=== PATIENT | male | born 1980 | race Caucasian/White ===

== ENCOUNTER 2016-08-02 14:59 | Emergency (ER) | payer OTHER ==
[~2016-08-02] VITALS: Ht 180.3 cm; Wt 100.0 kg
[~2016-08-02 14:59] MED LIST: CYCL-36 PO; HYDR-3533 PO; PRED20 PO
[2016-08-02 15:00] VITALS: BP 166/80; PULSE 62; TEMP 97.6; O2SAT 99
--- NOTE | 2016-08-02 15:20 | PD ---
HPI Chief Complaint: Wound/Suture/Staple Re-Check Time Seen by Provider: 15:18 Travel History International Travel<30 days: No Contact w/Intl Traveler<30days: No Traveled to known affect area: No History of Present Illness HPI 35-year-old male presents to emergency Department with complaint of a broken suture in the middle of his laceration from a mole removal 2 days ago. Says the size of the laceration are closed but the middle is open. [facility] Denies fever, vomiting. Has applied a Band-Aid to the area. Has no medical complaints. Allergies to morphine. No other modifying factors or associated signs and symptoms. PFSH Social History Alcohol Use: No Tobacco Use: No Allergies-Medications (Allergen,Severity, Reaction): Coded Allergies: Morphine (Verified Allergy, Severe, TWITCHING, 05/20/14) Reported Meds & Prescriptions Reported Meds & Active Scripts Active Flexeril (Cyclobenzaprine HCl) 10 Mg Tab 10 Mg PO TID Lortab 5 mg/325 mg (Hydrocodone/Acetaminophen 5 mg/325 mg) 1 Tab 1 Tab PO Q8 PRN Deltasone (Prednisone) 20 Mg Tab 20 Mg PO TID Review of Systems Except as stated in HPI: all other systems reviewed are Neg Physical Exam Narrative GENERAL: Well-nourished, well-developed male patient, in no acute distress SKIN: Warm and dry. Right upper back with approximately 1 cm laceration with 2 sutures intact and wound is not well approximated; without erythema, edema, drainage. No signs of infection. HEAD: Atraumatic. Normocephalic. EYES: Pupils equal and round. No scleral icterus. No injection or drainage. ENT: Mucosa pink and moist. Airway patent. NECK: Trachea midline. CARDIOVASCULAR: Regular rate. RESPIRATORY: No accessory muscle use. GASTROINTESTINAL: Flat. MUSCULOSKELETAL: No obvious deformities. No clubbing. No cyanosis. No edema. NEUROLOGICAL: Awake and alert. Oriented 3. No obvious cranial nerve deficits. Motor grossly within normal limits. Normal speech. PSYCHIATRIC: Appropriate mood and affect; insight and judgment normal. Data Data Last Documented VS Vital Signs Date Time Temp Pulse Resp B/P Pulse Ox O2 Delivery O2 Flow Rate FiO2 08/02/16 15:00 97.6 62 166/80 99 MDM Medical Decision Making Medical Screen Exam Complete: Yes Emergency Medical Condition: Yes Medical Record Reviewed: Yes Differential Diagnosis Wound recheck, broken suture, laceration Narrative Course 35-year-old male with a broken suture laceration from a mole removal 2 days ago. The laceration is approximately 1 cm and a small area is open in the middle. Steri-Strips applied. Instructed patient to follow-up with primary care provider and refrigerator assembler. Patient verbalizes understanding and agreement with treatment plan. Patient is medically cleared and stable for discharge. Discussed reasons to return to the emergency department. Instructed patient to follow up with primary care provider. Patient agrees with treatment plan. The patients vital signs are stable and the patient is stable for outpatient follow-up and treatment. Patient discharged home, stable and in no acute distress. Diagnosis Primary Impression: Encounter for wound re-check Additional Impression: Broken suture Qualified Code: T81.31XA - Broken suture, initial encounter Referrals: Gre Tutor Primary Care Physician Patient Instructions: General Instructions, Steristrips (ED) Additional Instructions: Keep area clean and dry Follow-up with refrigerator assembler and follow-up with primary care provider Return to the emergency department immediately for worsening of symptoms Med/Other Pt SpecificInfo: No Change to Meds, No Meds Exist/No RX given Disposition: 01 DISCHARGE HOME Condition: Stable Rika Cardenas Aug 02, 2016 15:20
== END 2016-08-02 15:35 | disposition home or self-care (01) ==
LOC: NEPD 14:59
DX: Z48.02 Encounter for removal of sutures (principal)
CPT/HCPCS: 99281